=== PATIENT | female | born 1965 | race African-American/Black ===

== ENCOUNTER 2018-06-01 20:52 | Emergency (ER) | payer MEDICAID ==
[~2018-06-01] VITALS: Ht 172.7 cm; Wt 127.3 kg
[~2018-06-01 20:52] MED LIST: ALBU17AE27 IH; FLUT1DIS3 IH
[2018-06-01 21:08] LABS: GLUCOSE,POINT OF CARE 423 MG/DL (70-110)
[2018-06-01] MEDS ORDERED: LISI-660 PO (21:11)
[2018-06-01] MEDS ORDERED: ATOR10TA84 PO (21:11)
[2018-06-01] MEDS ORDERED: METF500T7 PO (21:11)
[2018-06-01] MEDS ORDERED: SODIUM CHLORIDE 0.9% 2,000 ML IV ONE (21:57)
[2018-06-01] MEDS ORDERED: ONDANSETRON HCL 4 MG/2 ML VIAL IVP ONE (22:00)
[2018-06-01] MEDS ORDERED: INSULIN REGULAR, HUMAN 100 UNITS/ML IVP ONE (22:00)
[2018-06-01 22:12] LABS: BASOPHILS % (AUTO) 1.2 % (0.0-2.0); EOSINOPHILS % (AUTO) 3.7 % (1.0-6.0); HEMOGLOBIN 12.9 g/dL (12.0-16.0); LYMPHOCYTES # (AUTO) 1.3 K/uL (1.0-4.8); LYMPHOCYTES % (AUTO) 33.1 % (22.0-44.0); MEAN CORPUSCULAR HEMOGLOBIN 27.5 pg (26.0-34.0); MEAN CORPUSCULAR VOLUME 81 fL (80-100); MONOCYTES # (AUTO) 0.4 K/uL (0.1-1.0); MONOCYTES % (AUTO) 9.6 % (2.0-9.0); NEUTROPHILS # (AUTO) 2.1 K/uL (1.8-7.7); NEUTROPHILS % (AUTO) 52.4 % (40.0-70.0); PLATELET COUNT (AUTO) 270 K/uL (150-450); RED BLOOD CELL COUNT(AUTO) 4.69 MIL/uL (4.00-5.20); RED CELL DISTRIBUTION WIDTH 13.3 % (11.5-14.5)
[2018-06-01 22:47] LABS: ALBUMIN 3.2 g/dL (3.4-5.0); BILIRUBIN,TOTAL 0.4 mg/dL (0.1-1.0); CALCIUM, TOTAL 9.3 mg/dL (8.8-10.5); CREATININE 1.39 mg/dL (0.60-1.30); POTASSIUM 4.2 mmol/L (3.5-5.1); TOTAL PROTEIN, SERUM 7.3 g/dL (6.4-8.2)
[2018-06-01 23:29] LABS: GLUCOSE,POINT OF CARE 208 MG/DL (70-110)
[2018-06-02 00:42] VITALS: BP 119/67
[2018-06-02 00:54] LABS: GLUCOSE,POINT OF CARE 222 MG/DL (70-110)
== END 2018-06-02 01:19 | disposition home or self-care (01) ==
LOC: EMS 20:53
DX: E11.65 Type 2 diabetes mellitus with hyperglycemia (principal); R07.9 Chest pain, unspecified; E66.9 Obesity, unspecified; J45.909 Unspecified asthma, uncomplicated; E78.00 Pure hypercholesterolemia, unspecified; I10 Essential (primary) hypertension; F17.210 Nicotine dependence, cigarettes, uncomplicated; Z68.41 Body mass index [BMI] 40.0-44.9, adult; Z79.899 Other long term (current) drug therapy; Z79.84 Long term (current) use of oral hypoglycemic drugs
CPT/HCPCS: 80053; 82009; 82550; 82962; 83690; 83880; 84484; 85025; 93005; 96361; 96374; 96375; 99285; J1815; J2405; J7030

== ENCOUNTER 2019-03-08 19:02 | Emergency (ER) | payer MEDICAID ==
[~2019-03-08] VITALS: Ht 167.6 cm; Wt 108.6 kg
[~2019-03-08 19:02] MED LIST changes: +ATOR10TA84 PO; +LISI-660 PO; +METF500T20 PO
[2019-03-08] MEDS ORDERED: IPRATROPIUM BROMIDE 0.5 MG/2.5 ML NEB SOLUTION NEB ONE (19:30)
[2019-03-08] MEDS ORDERED: ALBUTEROL SULFATE 2.5 MG/0.5 ML NEB SOLUTION NEB ONE (19:30)
[2019-03-08] MEDS ORDERED: GLIP10TA9 PO (19:40)
[2019-03-08] MEDS ORDERED: RANI150T7 PO (19:40)
[2019-03-08] MEDS ORDERED: METF-960 PO (19:40)
[2019-03-08] MEDS ORDERED: GABA800T9 PO (19:40)
[2019-03-08] MEDS ORDERED: ATOR40TA28 PO (19:40)
[2019-03-08] MEDS ORDERED: ADV250 IH (19:40)
[2019-03-08] MEDS ORDERED: ALBU8HFA IH (19:40)
[2019-03-08] MEDS ORDERED: LISI-662 PO (19:40)
[2019-03-08] MEDS ORDERED: 0.9% SODIUM CHLORIDE 5 ML NEB SOLUTION NEB ONE (19:51)
[2019-03-08 22:38] LABS: BASOPHILS % (AUTO) 1.5 % (0.0-2.0); HEMATOCRIT 40.3 % (36-46); HEMOGLOBIN 13.2 g/dL (12.0-16.0); LYMPHOCYTES # (AUTO) 3.7 K/uL (1.0-4.8); LYMPHOCYTES % (AUTO) 48.4 % (22.0-44.0); MEAN CORPUSCULAR HEMOGLOBIN 26.3 pg (26.0-34.0); MEAN CORPUSCULAR HGB CONC 32.8 G/dL (31.0-37.0); MEAN CORPUSCULAR VOLUME 80 fL (80-100); MONOCYTES # (AUTO) 0.5 K/uL (0.1-1.0); MONOCYTES % (AUTO) 6.7 % (2.0-9.0); NEUTROPHILS # (AUTO) 3.1 K/uL (1.8-7.7); NEUTROPHILS % (AUTO) 41.4 % (40.0-70.0); PLATELET COUNT (AUTO) 169 K/uL (150-450); RED BLOOD CELL COUNT(AUTO) 5.03 MIL/uL (4.00-5.20); RED CELL DISTRIBUTION WIDTH 16.8 % (11.5-14.5)
[2019-03-08 22:56] LABS: ALANINE AMINOTRANSFERASE 27 U/L (12-78); ALBUMIN 3.6 g/dL (3.4-5.0); ALKALINE PHOSPHATASE 94 U/L (46-116); ANION GAP 10 mmol/L (8-16); ASPARTATE AMINOTRANSFERASE 14 U/L (15-37); BILIRUBIN,TOTAL 0.3 mg/dL (0.1-1.0); CALCIUM, TOTAL 9.2 mg/dL (8.8-10.5); CARBON DIOXIDE 27 mmol/L (22-29); CHLORIDE 98 mmol/L (98-107); CREATININE 0.96 mg/dL (0.60-1.30); GLOMERULAR FILTR. RATE CALC > 60 mL/min (>60); POTASSIUM 3.4 mmol/L (3.5-5.1); SODIUM SERUM 135 mmol/L (136-145); TOTAL PROTEIN, SERUM 8.3 g/dL (6.4-8.2); UREA NITROGEN, BLOOD 12 mg/dL (7-18)
[2019-03-08 22:58] LABS: GLUCOSE,RANDOM 462 mg/dL (70-110)
[2019-03-08] MEDS ORDERED: SODIUM CHLORIDE 0.9% 2,000 ML IV ONE (23:00)
[2019-03-08 23:26] LABS: GLUCOSE,POINT OF CARE 468 MG/DL (70-110)
[2019-03-08 23:29] LABS: APPEARANCE,URINE CLEAR (CLEAR); BILIRUBIN,URINE NEGATIVE (NEGATIVE); GLUCOSE, URINE (UA) >=1000 mg/dL (NEGATIVE); KETONES,URINE NEGATIVE (NEGATIVE); LEUKOCYTE ESTERASE ,URINE NEGATIVE (NEGATIVE); NITRATE,URINE NEGATIVE (NEGATIVE); OCCULT BLOOD,URINE NEGATIVE (NEGATIVE); PH,URINE 5.5 (5.0-8.0); PROTEIN,URINE NEGATIVE (NEGATIVE); UROBILINOGEN,URINE 0.2 mg/dL (<=1.0)
[2019-03-08 23:36] LABS: BACTERIA,URINE None Seen /HPF (None Seen); RBC,URINE 0-2 /HPF (0-2); SQUAMOUS EPITHELIAL CELL,UR Few /LPF (None Seen); WBC,URINE 0-2 /HPF (0-5)
[2019-03-08] MEDS ORDERED: POTASSIUM CHLORIDE 20 MEQ ER TABLET PO ONE (23:45)
[2019-03-08] MEDS ORDERED: INSULIN REGULAR, HUMAN 100 UNITS/ML SQ ONE (23:45)
[2019-03-09] MEDS ORDERED: ACETAMINOPHEN 500 MG TABLET PO ONE (00:15)
[2019-03-09 01:28] LABS: GLUCOSE,POINT OF CARE 459 MG/DL (70-110)
[2019-03-09 01:39] LABS: GLUCOSE,POINT OF CARE 259 MG/DL (70-110)
[2019-03-09 04:12] VITALS: BP 116/71
== END 2019-03-09 04:20 | disposition home or self-care (01) ==
LOC: EMS 19:05
DX: E11.65 Type 2 diabetes mellitus with hyperglycemia (principal); J45.901 Unspecified asthma with (acute) exacerbation; I10 Essential (primary) hypertension; E78.00 Pure hypercholesterolemia, unspecified; Z79.84 Long term (current) use of oral hypoglycemic drugs; Z79.899 Other long term (current) drug therapy
CPT/HCPCS: 36415; 71045; 80053; 81001; 82962; 85025; 94640; 96360; 96361; 96372; 99284; J1815; J7030

== ENCOUNTER 2021-07-21 12:07 | Emergency (ER) | payer MEDICAID ==
[~2021-07-21] VITALS: Ht 160 cm; Wt 109.1 kg
[~2021-07-21 12:07] MED LIST changes: -ALBU17AE27 IH; +ALBU8HFA IH; -ATOR10TA84 PO; +ATOR40TA28 PO; -FLUT1DIS3 IH; +FLUT1DIS6 IH; +GABA800T9 PO; +GLIP10TA9 PO; -LISI-660 PO; +LISI-894 PO; +METF-1211 PO; -METF500T20 PO; +RANI150T7 PO
[2021-07-21 12:11] VITALS: BP 144/86
[2021-07-21] MEDS ORDERED: DULA0.75 SQ (12:15)
[2021-07-21] MEDS ORDERED: ASPI-1444 PO (12:15)
[2021-07-21] MEDS ORDERED: PERCT PO (13:44)
[2021-07-21] MEDS ORDERED: AMOX1TAB16 PO (13:44)
== END 2021-07-21 13:53 | disposition home or self-care (01) ==
LOC: EMS 12:08
DX: K08.89 Other specified disorders of teeth and supporting structures (principal); J45.909 Unspecified asthma, uncomplicated; E11.9 Type 2 diabetes mellitus without complications; E78.00 Pure hypercholesterolemia, unspecified; I10 Essential (primary) hypertension; F17.210 Nicotine dependence, cigarettes, uncomplicated; Z79.84 Long term (current) use of oral hypoglycemic drugs; Z79.899 Other long term (current) drug therapy; Z79.82 Long term (current) use of aspirin
CPT/HCPCS: 82962; 99282

== ENCOUNTER 2021-07-26 14:45 | Outpatient (CLI) | payer MEDICAID ==
[~2021-07-26 14:45] MED LIST changes: +AMOX1TAB16 PO; +ASPI-1444 PO; +DULA0.75 SQ; -GABA800T9 PO; +PERCT PO; -RANI150T7 PO
[2021-07-26 21:54] VITALS: BP 140/99
[2021-07-26 22:12] VITALS: BP 140/99
[2021-07-27] MEDS: GlipiZIDE 10 MG TABLET PO SCH ×2 (06:25→06:46)
[2021-07-27 06:37] LABS: GLUCOMETER DEV NAME(LOC) BV2S.; GLUCOSE,POINT OF CARE 192 MG/DL (70-110)
[2021-07-27] MEDS ORDERED: MetFORMIN HCL 500 MG TABLET PO SCH (07:00)
[2021-07-27] MEDS ORDERED: NICOTINE 14 MG/24 HOUR PATCH TD PRN (07:30)
[2021-07-27 08:56] VITALS: BP 140/94
[2021-07-27] MEDS ORDERED: ASPIRIN 81 MG CHEWABLE TABLET PO SCH (09:00)
[2021-07-27] MEDS ORDERED: LISINOPRIL 20 MG TABLET PO SCH (09:00)
[2021-07-27] MEDS ORDERED: ATORVASTATIN CALCIUM 40 MG TABLET PO SCH (21:00)
== END 2021-07-27 09:00 | disposition home or self-care (01) ==
LOC: CSU 14:45
PROVIDERS: ATTEND Nurse Practitioner Psychiatric/Mental Health
DX: F39 Unspecified mood [affective] disorder (principal); J45.909 Unspecified asthma, uncomplicated; E66.9 Obesity, unspecified
CPT/HCPCS: 82962; 90792

== ENCOUNTER 2021-07-26 15:49 | Emergency (ER) | payer MEDICAID ==
[~2021-07-26] VITALS: Ht 162.6 cm; Wt 81.8 kg
[2021-07-26] MEDS ORDERED: LORazepam 1 MG TABLET PO ONE (16:15)
[2021-07-26 16:23] LABS: EOSINOPHILS % (AUTO) 1.9 % (1.0-6.0); HEMATOCRIT 39.4 % (36-46); HEMOGLOBIN 13.5 g/dL (12.0-16.0); LYMPHOCYTES # (AUTO) 3.1 K/uL (1.0-4.8); LYMPHOCYTES % (AUTO) 36.4 % (22.0-44.0); MEAN CORPUSCULAR HEMOGLOBIN 29.5 pg (26.0-34.0); MEAN CORPUSCULAR HGB CONC 34.3 G/dL (31.0-37.0); MEAN CORPUSCULAR VOLUME 86 fL (80-100); MONOCYTES # (AUTO) 0.4 K/uL (0.1-1.0); MONOCYTES % (AUTO) 4.9 % (2.0-9.0); NEUTROPHILS # (AUTO) 4.8 K/uL (1.8-7.7); NEUTROPHILS % (AUTO) 55.8 % (40.0-70.0); PLATELET COUNT (AUTO) 246 K/uL (150-450); RED BLOOD CELL COUNT(AUTO) 4.58 MIL/uL (4.00-5.20); RED CELL DISTRIBUTION WIDTH 14.5 % (11.5-14.5)
[2021-07-26 16:26] LABS: GLUCOSE,POINT OF CARE 158 MG/DL (70-110)
[2021-07-26 16:30] LABS: COVID AG,FIA SOURCE NASOPHARYNGEAL
[2021-07-26 16:34] LABS: ANION GAP 8 mmol/L (8-16); CALCIUM, TOTAL 9.1 mg/dL (8.8-10.5); CARBON DIOXIDE 27 mmol/L (22-29); CHLORIDE 106 mmol/L (98-107); CREATININE 0.85 mg/dL (0.60-1.30); GLOMERULAR FILTR. RATE CALC > 60 mL/min (>60); GLUCOSE,RANDOM 167 mg/dL (70-110); POTASSIUM 3.6 mmol/L (3.5-5.1); SODIUM SERUM 141 mmol/L (136-145); UREA NITROGEN, BLOOD 13 mg/dL (7-18)
[2021-07-26 16:39] LABS: ALANINE AMINOTRANSFERASE 18 U/L (12-78); ALBUMIN 3.5 g/dL (3.4-5.0); ALKALINE PHOSPHATASE 96 U/L (46-116); ASPARTATE AMINOTRANSFERASE 11 U/L (15-37); BILIRUBIN,TOTAL 0.2 mg/dL (0.1-1.0); TOTAL PROTEIN, SERUM 8.1 g/dL (6.4-8.2)
[2021-07-26 16:44] LABS: AMPHET/METH SCREEN,URINE NEGATIVE (NEGATIVE); BARBITURATE SCREEN, URINE NEGATIVE (NEGATIVE); BENZODIAZEPINES SCREEN,URINE NEGATIVE (NEGATIVE); CANNABINOID SCREEN,URINE NEGATIVE (NEGATIVE); COCAINE SCREEN,URINE POSITIVE (NEGATIVE); METHADONE SCREEN, URINE NEGATIVE (NEGATIVE); OPIATE SCREEN,URINE NEGATIVE (NEGATIVE)
[2021-07-26 16:46] LABS: PHENCYCLIDINE SCREEN,URINE POSITIVE (NEGATIVE)
[2021-07-26 18:54] VITALS: BP 127/84
== END 2021-07-26 19:21 | disposition home or self-care (01) ==
LOC: EMS 15:49
DX: R45.851 Suicidal ideations (principal); E11.65 Type 2 diabetes mellitus with hyperglycemia; R45.1 Restlessness and agitation; F14.10 Cocaine abuse, uncomplicated; F16.10 Hallucinogen abuse, uncomplicated; I10 Essential (primary) hypertension; E78.00 Pure hypercholesterolemia, unspecified; J45.909 Unspecified asthma, uncomplicated; F17.210 Nicotine dependence, cigarettes, uncomplicated; Z79.899 Other long term (current) drug therapy; Z79.84 Long term (current) use of oral hypoglycemic drugs; Z20.822 Contact with and (suspected) exposure to COVID-19
CPT/HCPCS: 36415; 80053; 80307; 82962; 85025; 87426; 99283; G0480

== ENCOUNTER 2021-12-29 10:49 | Emergency (ER) | payer MEDICAID ==
[~2021-12-29] VITALS: Ht 167.6 cm; Wt 94.0 kg
[2021-12-29 11:04] VITALS: BP 117/69
[2021-12-29 11:34] LABS: COVID AG,FIA SOURCE NASAL SWAB
== END 2021-12-29 12:31 | disposition left against medical advice (07) ==
LOC: EMS 10:50
DX: Z53.21 Procedure and treatment not carried out due to patient leaving prior to being seen by health care provider (principal); Z20.822 Contact with and (suspected) exposure to COVID-19

== ENCOUNTER 2025-01-04 14:13 | Emergency (ER) | payer MEDICAID ==
[~2025-01-04] VITALS: Ht 162.6 cm; Wt 86.0 kg
[~2025-01-04 14:13] MED LIST changes: +ALBU18HF12 IH; -ALBU8HFA IH; +AMOX-457 PO; -AMOX1TAB16 PO; +FLUT1BLS6 IH; -FLUT1DIS6 IH; +GLIP10TA16 PO; -GLIP10TA9 PO
[2025-01-04] MEDS: LIDOCAINE 5% TRANSDERMAL PATCH TD ONE (19:23)
[2025-01-04] MEDS: KETOROLAC TROMETHAMINE 30 MG/ML VIAL IM ONE (19:23)
[2025-01-04 19:44] LABS: COVID AG,FIA SOURCE NASAL SWAB
[2025-01-04 20:14] LABS: INFLUENZA TYPE A NEGATIVE FOR TYPE A (NEGATIVE); INFLUENZA TYPE B NEGATIVE FOR TYPE B (NEGATIVE); SARS-COV2 (COVID) ANTIGEN,FIA Negative (Negative)
[2025-01-04] MEDS ORDERED: 0.9% SODIUM CHLORIDE 5 ML NEB SOLUTION NEB ONE (21:04)
[2025-01-04] MEDS ORDERED: GUAI100L96 PO (21:45)
[2025-01-04] MEDS ORDERED: IBUP-1492 PO (21:45)
[2025-01-04 21:52] VITALS: BP 105/68; TEMP 98.7; O2SAT 97
[2025-01-04] MEDS: ALBUTEROL SULFATE 2.5 MG/0.5 ML NEB SOLUTION NEB ONE (22:08)
[2025-01-05 03:49] VITALS: PULSE 86; RESP 18; O2SAT 98
== END 2025-01-04 22:15 | disposition home or self-care (01) ==
LOC: EMS 14:13
DX: M54.50 Low back pain, unspecified (principal); J06.9 Acute upper respiratory infection, unspecified; I10 Essential (primary) hypertension; E11.9 Type 2 diabetes mellitus without complications; E78.00 Pure hypercholesterolemia, unspecified; J45.909 Unspecified asthma, uncomplicated; F17.210 Nicotine dependence, cigarettes, uncomplicated; F11.90 Opioid use, unspecified, uncomplicated; Z98.890 Other specified postprocedural states; Z79.82 Long term (current) use of aspirin; Z79.51 Long term (current) use of inhaled steroids; Z79.899 Other long term (current) drug therapy; Z20.822 Contact with and (suspected) exposure to COVID-19; W01.0XXA Fall on same level from slipping, tripping and stumbling without subsequent striking against object, initial encounter; Y93.89 Activity, other specified; Y92.89 Other specified places as the place of occurrence of the external cause; Y99.8 Other external cause status
CPT/HCPCS: 99284; 71045; 87426; 82962; 87804; 94640; 72110; 96372; J1885; J7613

== ENCOUNTER 2025-01-06 16:11 | Emergency (ER) | payer MEDICAID ==
[~2025-01-06] VITALS: Ht 149.9 cm; Wt 90.9 kg
[~2025-01-06 16:11] MED LIST changes: +GUAI100L96 PO; +IBUP-1492 PO
[2025-01-06 16:23] VITALS: BP 126/80; PULSE 114; RESP 18; TEMP 98.4; O2SAT 97
== END 2025-01-06 18:01 | disposition left against medical advice (07) ==
LOC: EMS 16:11
DX: J00 Acute nasopharyngitis [common cold] (principal); Z53.21 Procedure and treatment not carried out due to patient leaving prior to being seen by health care provider